=== PATIENT | male | born 1985 | race African-American/Black ===

== ENCOUNTER 2022-05-04 03:19 | Inpatient (IN) | payer SELFPAY ==
[2022-05-04] MEDS ORDERED: Fentanyl 100 MCG/2 ML VIAL ONE (03:57)
[2022-05-04 07:42] LABS: SARS-CoV-2 NAA Rapid Test Not Detected (NotDetected)
[2022-05-04] MEDS ORDERED: Enoxaparin Sodium 100 MG/ML SYRINGE ONE (08:17)
[2022-05-04] MEDS ORDERED: Acetaminophen 650 MG Suppository PR PRN (08:31)
[2022-05-04] MEDS ORDERED: Ondansetron ODT 4 MG TAB PO PRN (08:31)
[2022-05-04] MEDS ORDERED: Acetaminophen 325 MG TAB PO PRN (08:31)
[2022-05-04] MEDS ORDERED: Ondansetron PF 4 MG/2 ML Vial IVP PRN (08:31)
[2022-05-04 08:39] LABS: #Eosinphils 0.1 thou/uL (0.0-0.7); #Lymphocytes 2.8 thou/uL (1.20-3.40); #Monocytes 0.9 thou/uL (0.11-0.59); #Neutrophils 6.4 thou/uL (1.40-6.50); %Basophils 0.2 % (0.0-1.0); %Eosinophils 0.6 % (0.0-10.0); %Lymphocytes 27.2 % (21.0-51.0); %Monocytes 8.7 % (0.0-10.0); %Neutrophils 63.3 % (42.0-75.0); Hemoglobin 13.7 g/dL (14.0-18.0); Mean Corpuscular HGB CONC 32.9 g/dL (32.0-36.0); Mean Corpuscular Hemoglobin 32.1 pg (27.0-31.0); Mean Corpuscular Volume 97.6 fL (78.0-98.0); Mean Platelet Volume 7.2 fL (7.4-10.4); Platelet Count 232 thou/uL (130-400); RBC Distribution Width 12.3 % (11.5-14.5); Red Blood Cell (RBC) Count 4.27 mill/uL (4.70-6.10); White Blood Cell (WBC) Count 10.1 thou/uL (4.8-10.8)
[2022-05-04 08:58] LABS: Anion Gap 14 mmol/L (10-20); BUN (Urea Nitrogen) 10 mg/dL (8.9-20.6); Calc. Creatinine Clearance 0 mL/min (70-130); Calcium 8.7 mg/dL (7.8-10.44); Carbon Dioxide 22 mmol/L (22-29); Chloride 107 mmol/L (98-107); Estimated GFR 118; Glucose 103 mg/dL (70-105); Potassium 4.1 mmol/L (3.5-5.1); Sodium 139 mmol/L (136-145)
[2022-05-04] MEDS ORDERED: Acetaminophen 325 MG TAB ONE (11:13)
[2022-05-04] MEDS ORDERED: NEED HT/WT FS PRN (12:36)
[2022-05-04 13:25] VITALS: BMI 33.4
[2022-05-04 15:53] LABS: Amphetamine Not Detected (NotDetected); Barbiturates Screen Not Detected (NotDetected); Benzodiazepine Screen Not Detected (NotDetected); Cocaine Metabolite Screen Not Detected (NotDetected); Methadone Not Detected (NotDetected); Methamphetamine Not Detected (NotDetected); Opiate Screen Not Detected (NotDetected); Oxycodone Screen Not Detected (NotDetected); Phencyclidine (PCP) Not Detected (NotDetected); THC/Cannabinoid Screen Detected (NotDetected); Tricyclic Screen Not Detected (NotDetected)
[2022-05-04] MEDS: Enoxaparin Sodium 120 MG/0.8 ML SYRINGE SC SCH (20:17)
[2022-05-05 06:50] LABS: #Eosinphils 0.1 thou/uL (0.0-0.7); #Lymphocytes 2.6 thou/uL (1.20-3.40); #Monocytes 0.7 thou/uL (0.11-0.59); #Neutrophils 4.3 thou/uL (1.40-6.50); %Basophils 0.1 % (0.0-1.0); %Eosinophils 1.1 % (0.0-10.0); %Lymphocytes 34.2 % (21.0-51.0); %Monocytes 8.6 % (0.0-10.0); %Neutrophils 55.9 % (42.0-75.0); Anion Gap 14 mmol/L (10-20); BUN (Urea Nitrogen) 8 mg/dL (8.9-20.6); Calc. Creatinine Clearance 212 mL/min (70-130); Carbon Dioxide 23 mmol/L (22-29); Chloride 106 mmol/L (98-107); Estimated GFR 118; Glucose 80 mg/dL (70-105); Hemoglobin 14.3 g/dL (14.0-18.0); Mean Corpuscular HGB CONC 32.8 g/dL (32.0-36.0); Mean Corpuscular Hemoglobin 32.2 pg (27.0-31.0); Mean Corpuscular Volume 98.2 fL (78.0-98.0); Mean Platelet Volume 7.7 fL (7.4-10.4); Platelet Count 245 thou/uL (130-400); Potassium 4.3 mmol/L (3.5-5.1); RBC Distribution Width 12.3 % (11.5-14.5); Red Blood Cell (RBC) Count 4.45 mill/uL (4.70-6.10); Sodium 139 mmol/L (136-145); White Blood Cell (WBC) Count 7.7 thou/uL (4.8-10.8)
[2022-05-05] MEDS: Enoxaparin Sodium 120 MG/0.8 ML SYRINGE SC SCH ×2 (10:34→20:30)
[2022-05-06 08:07] VITALS: BP 130/70; TEMP 98.2
[2022-05-06] MEDS ORDERED: Apixaban 5 MG TAB PO SCH (09:00)
== END 2022-05-06 10:10 | disposition home or self-care (01) | DRG 176 ==
LOC: ERS 03:19 → ERHOLD 04:25 → 2SW 12:45
PROVIDERS: ADMIT Student in an Organized Health Care Education/Training Program; ATTEND Physician Assistant
DX: I26.99 Other pulmonary embolism without acute cor pulmonale (principal); I82.433 Acute embolism and thrombosis of popliteal vein, bilateral; I82.453 Acute embolism and thrombosis of peroneal vein, bilateral; F17.210 Nicotine dependence, cigarettes, uncomplicated; Z20.822 Contact with and (suspected) exposure to COVID-19; Z88.8 Allergy status to other drugs, medicaments and biological substances; Z79.899 Other long term (current) drug therapy; Z98.890 Other specified postprocedural states
CPT/HCPCS: 36415; 80048; 80306; 83880; 84484; 85025; 93306; 93970; 96372; 96374; J1650; J3010